=== PATIENT | female | born 1995 | race American Indian/Alaskan Native ===

== ENCOUNTER 2021-06-21 23:59 | Inpatient (IN) | payer SELFPAY ==
[2021-06-22] MEDS ORDERED: ACETAMINOPHEN 325 MG TAB PO ONE (01:07)
--- NOTE | 2021-06-22 01:08 | Emergency Department Report ---
<JOHANNY SETH - Last Filed: 06/22/21 06:13> ED General Adult HPI - General Chief complaint: Dyspnea/Respdistress Stated complaint: Chest wall pain. Shortness of breath Time Seen by Provider: 06/22/21 01:05 - Related Data Home Medications Medication Instructions Recorded Confirmed Last Taken No Known Home Medications [No 06/23/21 06/23/21 Unknown Reported Home Medications] Allergies Allergy/AdvReac Type Severity Reaction Status Date / Time No Known Allergies Allergy Verified 06/23/21 10:08 ED Past Medical Hx - Medications Home Medications: Home Medications Medication Instructions Recorded Confirmed Last Taken Type No Known Home Medications [No 06/23/21 06/23/21 Unknown History Reported Home Medications] ED Medical Decision Making - Lab Data Result diagrams: 06/22/21 01:15 06/22/21 01:15 - Medical Decision Making Patient signed out to me by Dr. Marie. Patient was admitted to hospitalist Dr. Quigley for persistent tachycardia and shortness of breath despite relatively negative ED work evaluation. Patient will be admitted for further work-up beyond ED evaluation ED Disposition Clinical Impression: Acute chest pain, Acute dyspnea, Tachycardia, BMI 40.0-44.9, adult Disposition: 09 ADMITTED INPATIENT Is pt being admited?: Yes Condition: Stable Time of Disposition: 06:15 <FOREST MARIE - Last Filed: 06/24/21 17:58> ED General Adult HPI - General PUI?: No Source: patient, EMS (Verbal report received from emergency medical services. EMS documentation not available at time of chart dictation ), RN notes reviewed Mode of arrival: Stretcher Limitations: Physical Limitation - History of Present Illness Initial comments: The patient was evaluated in the emergency department for symptoms described in the history of present illness. He/she was evaluated in the context of the global COVID-19 pandemic, which necessitated consideration that the patient might be at risk for infection with the virus that causes COVID-19. Institutional protocols and algorithms that pertain to the evaluation of patien ts at risk for COVID-19 are in a state of rapid change based on information released by regulatory bodies including the CDC and federal and state organizations. These policies and algorithms were followed during the patient's care in the emergency department. Please note that these policies, procedures and recommendations changed on a rapid basis. The patient is a morbidly obese 25-year-old female who reports that she is not , and reports that she has not delivered her given in the past 6 weeks. She presents to the ER with a complaint of sudden onset shortness of breath and chest pain. The patient is not vomiting. The patient denies diaphoresis. The patient reports that she has her Covid vaccinations. Patient denies travel, surgery, immobilization, oral contraceptive use, DVT/PE risk factors. Reports that her sister had a history of sickle trait or sickle cell disease, and as per EMS, " of cardiac complications." Patient is not quite sure what specifically happened. EMS reports that patient is tachycardic in the field. Patient also feels little bit dizzy somewhat lightheaded. She does endorse symptoms of obstructive sleep apnea, including snoring, sen sation of incomplete sleep interest, vivid dreams, and generalized fatigue. -: Sudden Location: chest Radiation: non-radiation Quality: aching Consistency: constant Improves with: rest Worsens with: movement ED Review of Systems ROS: Stated complaint: NATALIIA/TACHYCARDIA Other details as noted in HPI Constitutional: malaise, weakness. denies: fever Eyes: denies: eye discharge Respiratory: shortness of breath Cardiovascular: chest pain, palpitations Gastrointestinal: denies: abdominal pain Neurological: weakness Hematological/Lymphatic: denies: easy bleeding ED Physical Exam - General Limitations: Physical Limitation General appearance: alert, anxious, obese - Head Head exam: Present: atraumatic, normocephalic - Eye Eye exam: Present: normal appearance, EOMI. Absent: nystagmus - ENT ENT exam: Present: normal exam, normal orophraynx, mucous membranes moist, normal external ear exam - Neck Neck exam: Present: normal inspection, full ROM. Absent: tenderness, meningismus - Respiratory Respiratory exam: Present: chest wall tenderness, decreased breath sounds. Absent: respiratory distress, wheezes, rales, rhonchi, stridor - Cardiovascular Cardiovascular Exam: Present: normal rhythm, tachycardia, normal heart sounds. Absent: bradycardia, irregular rhythm, systolic murmur, diastolic murmur, rubs, gallop - GI/Abdominal GI/Abdominal exam: Present: soft. Absent: distended, tenderness, guarding, rebound, rigid, pulsatile mass - Extremities Exam Extremities exam: Present: normal inspection, full ROM, pedal edema (1-2+ edema in the bilateral lower extremities), other (2+ pulses noted in the bilateral upper and lower extremities. There is no palpable cord. negative Homans sign. Muscular compartments are soft. The pelvis is stable.). Absent: calf tenderness - Back Exam Back exam: Present: normal inspection, full ROM. Absent: tenderness, CVA ten derness (R), CVA tenderness (L), paraspinal tenderness, vertebral tenderness - Neurological Exam Neurological exam: Present: alert, other (No facial droop. Tongue midline. Extraocular movements intact bilaterally. Facial sensation intact to light touch in V1, V2, V3 distribution bilaterally. 5 and a 5 strength in 4 extremities. Sensation intact to light touch in 4 extremities.). Absent: motor sensory deficit - Psychiatric Psychiatric exam: Present: anxious - Skin Skin exam: Present: warm, dry, intact, normal color. Absent: rash ED Course Vital Signs 06/22/21 06/22/21 06/22/21 01:20 02:45 03:12 Temperature 98.8 F Pulse Rate 149 H 128 H Respiratory 18 22 20 Rate Blood Pressure Blood Pressure 158/88 117/82 [Left] O2 Sat by Pulse 98 98 Oximetry 06/22/21 06/22/21 06/22/21 03:13 03:14 04:14 Temperature Pulse Rate 130 H Respiratory 22 Rate Blood Pressure Blood Pressure [Left] O2 Sat by Pulse 98 Oximetry 06/22/21 06/22/21 06/22/21 05:01 06:01 07:01 Temperature Pulse Rate 127 H 126 H 118 H Respiratory 32 H 21 23 Rate Blood Pressure 118/52 116/48 119/57 Blood Pressure [Left] O2 Sat by Pulse 90 97 100 Oximetry 06/22/21 06/22/21 06/22/21 08:01 09:01 10:00 Temperature Pulse Rate 124 H 114 H 101 H Respiratory 15 20 15 Rate Blood Pressure 132/70 127/67 121/60 Blood Pressure [Left] O2 Sat by Pulse 98 99 Oximetry 06/22/21 06/22/21 06/22/21 11:00 12:00 13:00 Temperature Pulse Rate 99 H 98 H 93 H Respiratory 22 19 21 Rate Blood Pressure 108/57 112/56 109/58 Blood Pressure [Left] O2 Sat by Pulse Oximetry 06/22/21 06/22/21 06/22/21 14:00 15:00 16:00 Temperature Pulse Rate 93 H 92 H 87 Respiratory 20 13 19 Rate Blood Pressure 122/74 105/61 114/65 Blood Pressure [Left] O2 Sat by Pulse 99 Oximetry 06/22/21 17:00 Temperature Pulse Rate 103 H Respiratory 14 Rate Blood Pressure 127/74 Blood Pressure [Left] O2 Sat by Pulse 100 Oximetry - Reevaluation(s) Reevaluation #1: 06/22/21 04:00 Differential diagnosis, including but not limited to: Pneumonia, COVID-19, obstructive sleep apnea, pulmonary hypertension, acute coronary syndrome, myocarditis, pericarditis, pulmonary embolism, congestive heart failure, pericardial effusion Assessment and plan: 25-year-old female who is morbidly obese, with a BMI of 43, and markedly tachycardic, presenting with chest pain, shortness of breath, lightheadedness. Laboratory studies unremarkable. Chest x-ray unremarkable. EKG remarkable for sinus tachycardia. Negative D-dimer reviewed and appreciated. However, given morbid obesity, tachycardia, lack of alternative explanation, at this point time, patient does not appear to be low pretest probability and cannot be risk stratified by D-dimer alone. Therefore, CT scan of the chest will be obtained. Her tachycardia is improving. Patient at low risk for major adverse cardiac event as per heart score. We will treat her pain, obtain repeat EKG and troponin. 06/22/21 04:07 06/22/21 05:33 EKG #2 is unchanged from prior. Troponin is negative x2. Patient is still markedly tachycardic. Patient has received Tylenol, morphine, midazolam. Also received ketorolac. She will be given a trial bolus of IV fluids. Patient is agreeable to admission and hospitalization if necessary. Care will be transferred to the oncoming ER provider, to reassess after completion of IV fluids. Patient still tachycardic, admit this patient to the medical service for persistent tachycardia of unclear etiology, and acute chest pain. ED Medical Decision Making - Lab Data Result diagrams: 06/22/21 01:15 06/22/21 01:15 Vital Signs 06/22/21 06/22/21 06/22/21 01:20 02:45 03:12 Temperature 98.8 F Pulse Rate 149 H 128 H Respiratory 18 22 20 Rate Blood Pressure 158/88 117/82 [Left] O2 Sat by Pulse 98 98 Oximetry 06/22/21 06/22/21 03:13 03:14 Temperature Pulse Rate 130 H Respiratory Rate Blood Pressure [Left] O2 Sat by Pulse 98 Oximetry Lab Results 06/22/21 06/22/21 06/22/21 Range/Units 01:15 01:15 01:15 WBC 9.0 (4.5-11.0) K/mm3 RBC 4.70 (3.65-5.03) M/mm3 Hgb 12.4 (10.1-14.3) gm/dl Hct 38.4 (30.3-42.9) % MCV 82 (79-97) fl MCH 26 L (28-32) pg MCHC 32 (30-34) % RDW 14.4 (13.2-15.2) % Plt Count 224 (140-440) K/mm3 Lymph % (Auto) 25.0 (13.4-35.0) % [place] % (Auto) 10.8 H (0.0-7.3) % Eos % (Auto) 0.5 (0.0-4.3) % Baso % (Auto) 0.4 (0.0-1.8) % Lymph # (Auto) 2.3 (1.2-5.4) K/mm3 [place] # (Auto) 1.0 H (0.0-0.8) K/mm3 Eos # (Auto) 0.0 (0.0-0.4) K/mm3 Baso # (Auto) 0.0 (0.0-0.1) K/mm3 Seg Neutrophils % 63.3 (40.0-70.0) % Seg Neutrophils # 5.7 (1.8-7.7) K/mm3 PT 12.4 (12.2-14.9) Sec. INR 0.83 L (0.87-1.13) APTT 29.3 (24.2-36.6) Sec. D-Dimer (0-234) ng/mlDDU Sodium 139 (137-145) mmol/L Potassium 4.2 (3.6-5.0) mmol/L Chloride 102.1 (98-107) mmol/L Carbon Dioxide 22 (22-30) mmol/L Anion Gap 19 mmol/L BUN 12 (7-17) mg/dL Creatinine 0.9 (0.6-1.2) mg/dL Estimated GFR > 60 ml/min BUN/Creatinine Ratio 13 % Glucose 190 H (65-100) mg/dL Calcium 10.4 H (8.4-10.2) mg/dL Magnesium 1.60 L (1.7-2.3) mg/dL Total Bilirubin < 0.20 (0.1-1.2) mg/dL AST 23 (5-40) units/L ALT 18 (7-56) units/L Alkaline Phosphatase 81 (35-129) units/L Total Creatine Kinase (30-135) units/L Troponin T (0.00-0.029) ng/mL NT-Pro-B Natriuret Pep (0-450) pg/mL Total Protein 7.4 (6.3-8.2) g/dL Albumin 3.9 (3.9-5) g/dL Albumin/Globulin Ratio 1.1 % TSH (0.270-4.200) mlU/mL Free T4 (0.76-1.46) ng/dL HCG, Quant (0-4) mIU/mL 06/22/21 06/22/21 06/22/21 Range/Units 01:15 01:15 01:15 WBC (4.5-11.0) K/mm3 RBC (3.65-5.03) M/mm3 Hgb (10.1-14.3) gm/dl Hct (30.3-42.9) % MCV (79-97) fl MCH (28-32) pg MCHC (30-34) % RDW (13.2-15.2) % Plt Count (140-440) K/mm3 Lymph % (Auto) (13.4-35.0) % [place] % (Auto) (0.0-7.3) % Eos % (Auto) (0.0-4.3) % Baso % (Auto) (0.0-1.8) % Lymph # (Auto) (1.2-5.4) K/mm3 [place] # (Auto) (0.0-0.8) K/mm3 Eos # (Auto) (0.0-0.4) K/mm3 Baso # (Auto) (0.0-0.1) K/mm3 Seg Neutrophils % (40.0-70.0) % Seg Neutrophils # (1.8-7.7) K/mm3 PT (12.2-14.9) Sec. INR (0.87-1.13) APTT (24.2-36.6) Sec. D-Dimer (0-234) ng/mlDDU Sodium (137-145) mmol/L Potassium (3.6-5.0) mmol/L Chloride (98-107) mmol/L Carbon Dioxide (22-30) mmol/L Anion Gap mmol/L BUN (7-17) mg/dL Creatinine (0.6-1.2) mg/dL Estimated GFR ml/min BUN/Creatinine Ratio % Glucose (65-100) mg/dL Calcium (8.4-10.2) mg/dL Magnesium (1.7-2.3) mg/dL Total Bilirubin (0.1-1.2) mg/dL AST (5-40) units/L ALT (7-56) units/L Alkaline Phosphatase (35-129) units/L Total Creatine Kinase 372 H (30-135) units/L Troponin T < 0.010 (0.00-0.029) ng/mL NT-Pro-B Natriuret Pep < 5 (0-450) pg/mL Total Protein (6.3-8.2) g/dL Albumin (3.9-5) g/dL Albumin/Globulin Ratio % TSH (0.270-4.200) mlU/mL Free T4 1.07 (0.76-1.46) ng/dL HCG, Quant (0-4) mIU/mL 06/22/21 06/22/21 06/22/21 Range/Units 01:15 01:15 01:15 WBC (4.5-11.0) K/mm3 RBC (3.65-5.03) M/mm3 Hgb (10.1-14.3) gm/dl Hct (30.3-42.9) % MCV (79-97) fl MCH (28-32) pg MCHC (30-34) % RDW (13.2-15.2) % Plt Count (140-440) K/mm3 Lymph % (Auto) (13.4-35.0) % [place] % (Auto) (0.0-7.3) % Eos % (Auto) (0.0-4.3) % Baso % (Auto) (0.0-1.8) % Lymph # (Auto) (1.2-5.4) K/mm3 [place] # (Auto) (0.0-0.8) K/mm3 Eos # (Auto) (0.0-0.4) K/mm3 Baso # (Auto) (0.0-0.1) K/mm3 Seg Neutrophils % (40.0-70.0) % Seg Neutrophils # (1.8-7.7) K/mm3 PT (12.2-14.9) Sec. INR (0.87-1.13) APTT (24.2-36.6) Sec. D-Dimer 172.9 (0-234) ng/mlDDU Sodium (137-145) mmol/L Potassium (3.6-5.0) mmol/L Chloride (98-107) mmol/L Carbon Dioxide (22-30) mmol/L Anion Gap mmol/L BUN (7-17) mg/dL Creatinine (0.6-1.2) mg/dL Estimated GFR ml/min BUN/Creatinine Ratio % Glucose (65-100) mg/dL Calcium (8.4-10.2) mg/dL Magnesium (1.7-2.3) mg/dL Total Bilirubin (0.1-1.2) mg/dL AST (5-40) units/L ALT (7-56) units/L Alkaline Phosphatase (35-129) units/L Total Creatine Kinase (30-135) units/L Troponin T (0.00-0.029) ng/mL NT-Pro-B Natriuret Pep (0-450) pg/mL Total Protein (6.3-8.2) g/dL Albumin (3.9-5) g/dL Albumin/Globulin Ratio % TSH 1.320 (0.270-4.200) mlU/mL Free T4 (0.76-1.46) ng/dL HCG, Quant < 2 (0-4) mIU/mL - EKG Data -: EKG Interpreted by Sd EKG shows normal: sinus rhythm Rate: tachycardia - EKG Data 06/22/21 03:56 The EKG is interpreted at 01: 37 Sinus tachycardia, rate 140 bpm. Normal axis, normal intervals, normal P wave axis, high left ventricular voltage. Minimal motion artifact. Abnormal EKG. Not a STEMI. - Radiology Data Radiology results: pending, report reviewed, image reviewed CHEST 2 VIEWS INDICATION / CLINICAL INFORMATION: Dyspnea. COMPARISON: None available. FINDINGS: SUPPORT DEVICES: None. HEART / MEDIASTINUM: No significant abnormality. LUNGS / PLEURA: No significant pulmonary or pleural abnormality. No pneumothorax. ADDITIONAL FINDINGS: No significant additional findings. IMPRESSION: 1. No acute findings. Signer Name: Maude Campoverde MD Signed: 06/22/2021 1:34 AM Workstation Name: [facility] CTA CHEST WITH IV CONTRAST INDICATION / CLINICAL INFORMATION: acute cp, tacycardia. TECHNIQUE: Axial CT images were obtained through the chest after injection of 100 cc Omnipaque 350 IV contrast. 3 plane MIP and/or 3D reconstructions were produced. All CT scans at this location are performed using CT dose reduction for ALARA by means of automated exposure control. COMPARISON: Chest radiograph performed earlier today. FINDINGS: PULMONARY ARTERIES: No pulmonary emboli. THORACIC AORTA: No significant abnormality. HEART: No significant abnormality. CORONARY ARTERIES: No significant calcification. PLEURA: No pleural effusion. No pneumothorax. LYMPH NODES: No s ignificant adenopathy. LUNGS: No acute air space or interstitial disease. ADDITIONAL FINDINGS: None. UPPER ABDOMEN: No acute findings. SKELETAL STRUCTURES: No significant osseous abnormality. IMPRESSION: 1. No CT evidence for pulmonary embolism. 2. No acute pulmonary or pleural disease. Signer Name: Maude Campoverde MD Signed: 06/22/2021 3:14 AM Workstation Name: [facility] Critical care attestation.: If time is entered above; I have spent that time in minutes in the direct care of this critically ill patient, excluding procedure time. Heart Score - HEART Score History: Slightly suspicious EKG: Non-specific Age: < 45 Risk factors: 1-2 risk factors Troponin: < normal limit HEART Score: 2 - EKG Read Time Time EKG Completed: :37 EKG Read Time: 01:37 - Critical Actions Critical Actions: 0-3 pts:0.9-1.7%risk of adverse cardiac event.Candidate for discharge
[2021-06-22 01:34] LABS: Basophils % (Auto) 0.4 % (0.0-1.8); Eosinophils % (Auto) 0.5 % (0.0-4.3); Hematocrit 38.4 % (30.3-42.9); Hemoglobin 12.4 gm/dl (10.1-14.3); Lymphocytes # (Auto) 2.3 K/mm3 (1.2-5.4); Mean Corpuscular HGB Conc 32 % (30-34); Mean Corpuscular Volume 82 fl (79-97); Monocytes % (Auto) 10.8 % (0.0-7.3); Platelet Count 224 K/mm3 (140-440); Red Cell Distribution Width 14.4 % (13.2-15.2)
[2021-06-22 01:48] LABS: INR 0.83 (0.87-1.13); Partial Thromboplastin Time 29.3 Sec. (24.2-36.6)
[2021-06-22 01:57] LABS: Alanine Aminotransferase 18 units/L (7-56); Albumin 3.9 g/dL (3.9-5); BUN/Creatinine Ratio 13; Blood Urea Nitrogen 12 mg/dL (7-17); Calcium 10.4 mg/dL (8.4-10.2); Hemolysis Index 60
[2021-06-22] MEDS ORDERED: MORPHINE 4 MG/1 ML INJ IV ONE (02:21)
[2021-06-22] MEDS ORDERED: MAGNESIUM OXIDE 400 MG TAB PO STA (02:22)
[2021-06-22] MEDS ORDERED: POTASSIUM CHLORIDE ER 20 MEQ TAB PO ONE (02:22)
--- NOTE | 2021-06-22 02:38 | XRay Report ---
CHEST 2 VIEWS INDICATION / CLINICAL INFORMATION: Dyspnea. COMPARISON: None available. FINDINGS: SUPPORT DEVICES: None. HEART / MEDIASTINUM: No significant abnormality. LUNGS / PLEURA: No significant pulmonary or pleural abnormality. No pneumothorax. ADDITIONAL FINDINGS: No significant additional findings. IMPRESSION: 1. No acute findings. Signer Name: Maude Campoverde MD Signed: 06/22/2021 2:34 AM Workstation Name: [id number]
[2021-06-22] MEDS ORDERED: KETOROLAC 30 MG/1 ML INJ IV ONE (03:30)
--- NOTE | 2021-06-22 04:18 | Cat Scan Report ---
CTA CHEST WITH IV CONTRAST INDICATION / CLINICAL INFORMATION: acute cp, tacycardia. TECHNIQUE: Axial CT images were obtained through the chest after injection of 100 cc Omnipaque 350 IV contrast. 3 plane MIP and/or 3D reconstructions were produced. All CT scans at this location are performed usin g CT dose reduction for CEE by means of automated exposure control. COMPARISON: Chest radiograph performed earlier today. FINDINGS: PULMONARY ARTERIES: No pulmonary emboli. THORACIC AORTA: No significant abnormality. HEART: No significant abnormality. CORONARY ARTERIES: No significant calcification. PLEURA: No pleural effusion. No pneumothorax. LYMPH NODES: No significant adenopathy. LUNGS: No acute air space or interstitial disease. ADDITIONAL FINDINGS: None. UPPER ABDOMEN: No acute findings. SKELETAL STRUCTURES: No significant osseous abnormality. IMPRESSION: 1. No CT evidence for pulmonary embolism. 2. No acute pulmonary or pleural disease. Signer Name: Maude Campoverde MD Signed: 06/22/2021 4:14 AM Workstation Name: [id number]
[2021-06-22] MEDS ORDERED: MIDAZOLAM 2 MG/2 ML INJ IV ONE (04:25)
[2021-06-22] MEDS ORDERED: SODIUM CHLORIDE 0.9% 1000 ML 1,000 ML IV ONE (05:10)
--- NOTE | 2021-06-22 07:21 | History and Physical Report ---
History of Present Illness Date of examination: 06/22/21 Date of admission: 06/22/21 Chief complaint: chest pain and tachycardia History of present illness: Patient is a 25-year-old female with no significant past medical history except for morbid obesity who presents to the ED with complaint of sudden onset of shortness of breath and chest pain chest patient describes as reproducible substernal 5/10 in intensity started on the night before presentation constant nonradiating with no exertional pathology. She denies any diaphoresis orthopnea PND. She has a BMI of 43.4 states that she has no family history of cardiac disease except for a sister who had sickle cell and from cardiac complications. In the ER she was noted to have a heart rate in the 140s noted a sinus tachycardia on EKG initial work-up including a CTA of the chest was negative for pulmonary embolism. She denies any fever denies any alcohol or illicit drug use. Past History Past Medical History: other (obese) Past Surgical History: No surgical history Social history: no significant social history Family history: no significant family history Medications and Allergies Allergies Allergy/AdvReac Type Severity Reaction Status Date / Time No Known Allergies Allergy Verified 06/22/21 01:20 Review of Systems All systems: negative Constitutional: no weight loss, no weight gain, no sweats, no night sweats, no weakness, no malaise, no lethargy Cardiovascular: chest pain, shortness of breath, dyspnea on exertion Respiratory: shortness of breath, dyspnea on exertion Gastrointestinal: no abdominal pain, no vomiting, no diarrhea, no constipation, no change in bowel habits Exam - Physical Exam Narrative exam: VITAL SIGNS: Reviewed. GENERAL: The patient appears normally developed, Vital signs as documented. Morbidly obese HEAD: No signs of head trauma. EYES: Pupils are equal. Extraocular motions intact. EARS: Hearing grossly intact. MOUTH: Oropharynx is normal. NECK: No adenopathy, no JVD. CHEST: Chest with clear breath sounds bilaterally. No wheezes, rales, or rhonchi. CARDIAC: Regular rate and rhythm. S1 and S2, without murmurs, gallops, or rubs. VASCULAR: No Edema. Peripheral pulses normal and equal in all extremities. ABDOMEN: Soft, non tender and non distended. No rebound or guarding, and no masses palpated. Bowel Sounds normal. MUSCULOSKELETAL: Tender at the substernal area good range of motion of all major joints. Extremities without clubbing, cyanosis or edema. NEUROLOGIC EXAM: Alert and oriented x 3 No focal sensory or strength deficits. Speech normal. Follows commands. PSYCHIATRIC: Mood normal. SKIN: detail exam as documented in skin assessment - Constitutional Vitals: Temp Pulse Resp BP Pulse Ox 98.8 F 126 H 21 116/48 97 06/22/21 01:20 06/22/21 06:01 06/22/21 06:01 06/22/21 06:01 06/22/21 06:01 HEART Score - HEART Score EKG: Non-specific Age: < 45 Risk factors: 1-2 risk factors Troponin: Troponin T < 0.010 ng/mL (0.00-0.029) 06/22/21 04:16 Troponin: < normal limit - Critical Actions Critical Actions: 0-3 pts:0.9-1.7%risk of adverse cardiac event.Candidate for discharge Results - Labs CBC & Chem 7: 06/22/21 01:15 06/22/21 01:15 Labs: Laboratory Last Values WBC 9.0 K/mm3 (4.5-11.0) 06/22/21 01:15 RBC 4.70 M/mm3 (3.65-5.03) 06/22/21 01:15 Hgb 12.4 gm/dl (10.1-14.3) 06/22/21 01:15 Hct 38.4 % (30.3-42.9) 06/22/21 01:15 MCV 82 fl (79-97) 06/22/21 01:15 MCH 26 pg (28-32) L 06/22/21 01:15 MCHC 32 % (30-34) 06/22/21 01:15 RDW 14.4 % (13.2-15.2) 06/22/21 01:15 Plt Count 224 K/mm3 (140-440) 06/22/21 01:15 Lymph % (Auto) 25.0 % (13.4-35.0) 06/22/21 01:15 [place] % (Auto) 10.8 % (0.0-7.3) H 06/22/21 01:15 Eos % (Auto) 0.5 % (0.0-4.3) 06/22/21 01:15 Baso % (Auto) 0.4 % (0.0-1.8) 06/22/21 01:15 Lymph # (Auto) 2.3 K/mm3 (1.2-5.4) 06/22/21 01:15 [place] # (Auto) 1.0 K/mm3 (0.0-0.8) H 06/22/21 01:15 Eos # (Auto) 0.0 K/mm3 (0.0-0.4) 06/22/21 01:15 Baso # (Auto) 0.0 K/mm3 (0.0-0.1) 06/22/21 01:15 Seg Neutrophils % 63.3 % (40.0-70.0) 06/22/21 01:15 Seg Neutrophils # 5.7 K/mm3 (1.8-7.7) 06/22/21 01:15 PT 12.4 Sec. (12.2-14.9) 06/22/21 01:15 INR 0.83 (0.87-1.13) L 06/22/21 01:15 APTT 29.3 Sec. (24.2-36.6) 06/22/21 01:15 D-Dimer 172.9 ng/mlDDU (0-234) 06/22/21 01:15 ABG pH 7.378 (7.320-7.450) 06/22/21 05:42 POC ABG pCO2 41.5 mmHg (32.0-48.0) 06/22/21 05:42 POC ABG pO2 84.9 mmHg (83-108) 06/22/21 05:42 POC ABG HCO3 23.9 06/22/21 05:42 ABG O2 Saturation 96.6 (0-100) 06/22/21 05:42 POC ABG Base Excess -1.2 06/22/21 05:42 ABG Hemoglobin 12.3 (12.0-17.5) 06/22/21 05:42 ABG Oxyhemoglobin 95.9 (94-98) 06/22/21 05:42 ABG Methemoglobin 0 (0.0-1.5) 06/22/21 05:42 Carboxyhemoglobin 0.7 (0.5-1.5) 06/22/21 05:42 FiO2 % 21.0 06/22/21 05:42 Sodium 139 mmol/L (137-145) 06/22/21 01:15 Potassium 4.2 mmol/L (3.6-5.0) 06/22/21 01:15 Chloride 102.1 mmol/L (98-107) 06/22/21 01:15 Carbon Dioxide 22 mmol/L (22-30) 06/22/21 01:15 Anion Gap 19 mmol/L 06/22/21 01:15 BUN 12 mg/dL (7-17) 06/22/21 01:15 Creatinine 0.9 mg/dL (0.6-1.2) 06/22/21 01:15 Estimated GFR > 60 ml/min 06/22/21 01:15 BUN/Creatinine Ratio 13 % 06/22/21 01:15 Glucose 190 mg/dL (65-100) H 06/22/21 01:15 Calcium 10.4 mg/dL (8.4-10.2) H 06/22/21 01:15 Magnesium 1.60 mg/dL (1.7-2.3) L 06/22/21 01:15 Total Bilirubin < 0.20 mg/dL (0.1-1.2) 06/22/21 01:15 AST 23 units/L (5-40) 06/22/21 01:15 ALT 18 units/L (7-56) 06/22/21 01:15 Alkaline Phosphatase 81 units/L (35-129) 06/22/21 01:15 Total Creatine Kinase 372 units/L (30-135) H 06/22/21 01:15 Troponin T < 0.010 ng/mL (0.00-0.029) 06/22/21 04:16 NT-Pro-B Natriuret Pep < 5 pg/mL (0-450) 06/22/21 01:15 Total Protein 7.4 g/dL (6.3-8.2) 06/22/21 01:15 Albumin 3.9 g/dL (3.9-5) 06/22/21 01:15 Albumin/Globulin Ratio 1.1 % 06/22/21 01:15 TSH 1.320 mlU/mL (0.270-4.200) 06/22/21 01:15 Free T4 1.07 ng/dL (0.76-1.46) 06/22/21 01:15 HCG, Quant < 2 mIU/mL (0-4) 06/22/21 01:15 Assessment and Plan Assessment and plan: Patient is a 25-year-old female with no significant past medical history except for morbid obesity who presents to the ED with complaint of sudden onset of shortness of breath and chest pain chest patient describes as reproducible substernal 5/10 in intensity started on the night before presentation constant nonradiating with no exertional pathology. She denies any diaphoresis orthopnea PND. She has a BMI of 43.4 states that she has no family history of cardiac disease except for a sister who had sickle cell and from cardiac complications. In the ER she was noted to have a heart rate in the 140s noted a sinus tachycardia on EKG initial work-up including a CTA of the chest was negative for pulmonary embolism. She denies any fever denies any alcohol or illicit drug use. Atypical chest Pain constochondritis Tachycardia Hypomagnesmia Morbid Obesity ? Pickwickian syndrome ?Anxiety PLAN Admit to Tele Obtain cardiology consult Echo to monitor cardiac muscle Replace Magnesium and check mag level in am pain control Oxygen therapy Morphine PRN Weightloss recommended DVT/GI prophy Advance Directives: Yes Plan of care discussed with patient/family: Yes
[2021-06-22] MEDS ORDERED: oxyCODONE /ACETAMINOPHEN 5-325MG TAB PO PRN (08:00)
[2021-06-22] MEDS ORDERED: ONDANSETRON 4 MG/2 ML INJ IV PRN (08:00)
[2021-06-22] MEDS ORDERED: NALOXONE 0.4 MG/1 ML INJ IV PRN (08:00)
[2021-06-22] MEDS ORDERED: ACETAMINOPHEN 325 MG TAB PO PRN (08:00)
[2021-06-22 10:24] LABS: Amphetamine Screen,Urine Negative; Cocaine Screen,Urine Negative; Methadone Screen,Urine Negative
[2021-06-22 11:15] LABS: Benzodiazepines Screen,Urine Positive; Cannabinoid Screen,Urine Positive; Opiate Screen,Urine Negative
--- NOTE | 2021-06-22 11:55 | Consultation ---
History of Present Illness Consult date: 06/22/21 Requesting physician: SEVERO ESTRADA Consult reason: tachycardia History of present illness: Patient 25-year-old morbidly obese female who denies any past medical history who presents to the ED with complaint of sudden onset shortness of breath and dizziness that started at 11 PM the night before admission. Patient reports lying in bed when all of a sudden she developed the shortness of breath and dizziness. Patient also reports some slight chest pressure associated with shortness of breath. ED work-up has shown the patient to be sinus tach with heart rate in is 140s however has trended down to the low 100s -110s. Lab work thus far has been unrevealing. At time of interview patient reports chest pressure has disappeared. Patient denies orthopnea, palpitations, nausea, vomiting, or diaphoresis. Patient is previously unknown to our practice. Cardiology is consulted for tachycardia. Past History Past Medical History: No medical history Past Surgical History: No surgical history Social history: no significant social history Family history: other (sickel cell) Medications and Allergies Allergies Allergy/AdvReac Type Severity Reaction Status Date / Time No Known Allergies Allergy Verified 06/22/21 01:20 Active Meds: Active Medications Acetaminophen (Acetaminophen 325 Mg Tab) 650 mg PO Q4H PRN PRN Reason: Pain MILD(1-3)/Fever >100.5/NAIR Heparin Sodium (Porcine) (Heparin 5,000 Unit/1 Ml Vial) 5,000 unit SUB-Q Q8HR JONNATHAN Naloxone HCl (Naloxone 0.4 Mg/1 Ml Inj) 0.1 mg IV Q2MIN PRN PRN Reason: Res Rate </= 8 or 02 SAT < 92% Ondansetron HCl (Ondansetron 4 Mg/2 Ml Inj) 4 mg IV Q8H PRN PRN Reason: Nausea And Vomiting Oxycodone/Acetaminophen (Oxycodone /Acetaminophen 5-325mg Tab) 1 tab PO Q6H PRN PRN Reason: Pain, Moderate (4-6) Sodium Chloride (Sodium Chloride 0.9% 10 Ml Flush Syringe) 10 ml IV BID [facility] Last Admin: 06/22/21 10:49 Dose: 10 ml Sodium Chloride (Sodium Chloride 0.9% 10 Ml Flush Syringe) 10 ml IV PRN PRN PRN Reason: LINE FLUSH Review of Systems Constitutional: no weight loss, no weight gain, no fever, no chills Ears, nose, mouth and throat: no nasal discharge, no sinus pressure, no sinus pain Cardiovascular: chest pain, lightheadedness, shortness of breath, no orthopnea, no palpitations Respiratory: shortness of breath, dyspnea on exertion Gastrointestinal: no abdominal pain, no nausea, no vomiting, no diarrhea Musculoskeletal: no neck stiffness, no neck pain, no shooting arm pain Integumentary: no rash, no pruritis, no redness Neurological: no head injury, no transient paralysis Psychiatric: no anxiety, no memory loss Endocrine: no cold intolerance, no heat intolerance Hematologic/Lymphatic: no easy bruising, no easy bleeding Physical Examination Vital Signs Temp Pulse Resp BP Pulse Ox 98.8 F 149 H 18 158/88 98 06/22/21 01:20 06/22/21 01:20 06/22/21 01:20 06/22/21 01:20 06/22/21 01:20 General appearance: no acute distress HEENT: Positive: PERRL Neck: Positive: trachea midline Cardiac: Positive: Regular Rhythm, Tachycardia Lungs: Positive: Normal Breath Sounds Neuro: Positive: Grossly Intact Abdomen: Positive: Soft, Active Bowel Sounds Skin: Negative: Rash, Suspicious Lesions, Ulceration Extremities: Present: upper extr. pulses. Absent: edema Results 06/22/21 01:15 06/22/21 01:15 Cardiac Enzymes 06/22/21 Range/Units 01:15 AST 23 (5-40) units/L Coagulation 06/22/21 Range/Units 01:15 PT 12.4 (12.2-14.9) Sec. INR 0.83 L (0.87-1.13) APTT 29.3 (24.2-36.6) Sec. CBC 06/22/21 Range/Units 01:15 WBC 9.0 (4.5-11.0) K/mm3 RBC 4.70 (3.65-5.03) M/mm3 Hgb 12.4 (10.1-14.3) gm/dl Hct 38.4 (30.3-42.9) % Plt Count 224 (140-440) K/mm3 Lymph # (Auto) 2.3 (1.2-5.4) K/mm3 [place] # (Auto) 1.0 H (0.0-0.8) K/mm3 Eos # (Auto) 0.0 (0.0-0.4) K/mm3 Baso # (Auto) 0.0 (0.0-0.1) K/mm3 Comprehensive Metabolic Panel 06/22/21 Range/Units 01:15 Sodium 139 (137-145) mmol/L Potassium 4.2 (3.6-5.0) mmol/L Chloride 102.1 (98-107) mmol/L Carbon Dioxide 22 (22-30) mmol/L BUN 12 (7-17) mg/dL Creatinine 0.9 (0.6-1.2) mg/dL Glucose 190 H (65-100) mg/dL Calcium 10.4 H (8.4-10.2) mg/dL AST 23 (5-40) units/L ALT 18 (7-56) units/L Alkaline Phosphatase 81 (35-129) units/L Total Protein 7.4 (6.3-8.2) g/dL Albumin 3.9 (3.9-5) g/dL - Imaging and Cardiology Echo: pending EKG interpretations - Telemetry EKG Rhythm: Sinus Tachycardia - EKG Sinus rhythms and dysrhythmias: sinus tachycardia Assessment and Plan Patient 25-year-old morbidly obese female who denies any past medical history who presents to the ED with complaint of sudden onset shortness of breath and dizziness that started at 11 PM the night before admission Tachycardia Obesity Plan: EKG shows sinus tach 132 with no acute ischemic changes. Trops negative x2. Patient currently denying chest pain Currently sinus 100s-110s on monitor Currently unclear as to why patient is tachycardic Echo pending Patient seen in conjunction with Dr. Gilman who agrees with this plan of care - Patient Problems (1) Acute dyspnea Current Visit: Yes Status: Acute (2) BMI 40.0-44.9, adult Current Visit: Yes Status: Acute (3) Tachycardia Current Visit: Yes Status: Acute
[2021-06-22] MEDS: HEPARIN 5,000 UNIT/1 ML VIAL SUB-Q SCH ×2 (17:47→22:04)
[2021-06-23] MEDS: HEPARIN 5,000 UNIT/1 ML VIAL SUB-Q SCH (06:00)
[2021-06-23 09:04] VITALS: BP 145/92
--- NOTE | 2021-06-23 12:09 | Discharge Summary ---
Providers - Providers Date of Admission: 06/22/21 13:03 Attending physician: LEANDRO LESLIE MD 06/22/21 07:19 Consult to Physician [CONS] Routine Comment: Consulting Provider: KAYY CAGLE Physician Instructions: Reason For Exam: chest pain, tachycardia Primary care physician: TIMOTEO AVILA MD Hospitalization Condition: Stable Exam - Constitutional Vitals: Temp Pulse Resp BP Pulse Ox 99.0 F 87 18 145/92 96 06/23/21 07:41 06/23/21 07:41 06/23/21 07:41 06/23/21 07:41 06/23/21 07:41 Plan Care Plan Goals: All fellow causes of chest pain were ruled out. You did not have a heart attack or blood clot in your lung. We feel your chest pain and high heart rate was due to anxiety. If you experience chest pain similar or worse, please return to the ED. Follow up with: TIMOTEO AVILA MD [Primary Care Provider] - 7 Days
--- NOTE | 2021-06-23 12:14 | Progress Note ---
Assessment and Plan Patient 25-year-old morbidly obese female who denies any past medical history who presents to the ED with complaint of sudden onset shortness of breath and dizziness that started at 11 PM the night before admission Tachycardia Obesity Echo 06/22/2021-EF 50 to 55%. Right ventricle is not well visualized. Right ventricle systolic function is normal. Right atrium not well visualized left atrium is normal in size. Aortic valve not well visualized. Trace tricuspid regurgitation Plan: EKG shows sinus tach 132 with no acute ischemic changes. Trops negative x2. Patient currently denying chest pain Currently sinus 100s-110s on monitor Echo results noted above Upon speaking with patient patient reports that she has been feeling stressed about family member recent and when thinking about that is when she developed her symptoms. Tachycardia likely result of stress/anxiety. Patient denied any desire to speak with mental health counselor Cardiac status stable for discharge Patient seen in conjunction with Dr. Gilman who agrees with this plan of care - Patient Problems (1) Acute dyspnea Current Visit: Yes Status: Acute (2) BMI 40.0-44.9, adult Current Visit: Yes Status: Acute (3) Tachycardia Current Visit: Yes Status: Acute Subjective Date of service: 06/23/21 Principal diagnosis: tachycardia Interval history: Patient walking around room. Patient reports feeling much better today and denies any symptoms Sinus 90s to low 100s on monitor with no event Objective Vital Signs Temp Pulse Resp BP BP Pulse Ox 06/23/21 07:41 99.0 F 87 18 145/92 96 06/23/21 04:06 97.7 F 85 20 139/85 94 06/23/21 02:54 100 06/23/21 00:24 98.1 F 89 16 116/69 96 06/22/21 20:24 98.2 F 77 18 124/73 91 06/22/21 19:30 77 06/22/21 17:00 103 H 14 127/74 100 06/22/21 16:00 87 19 114/65 99 06/22/21 15:00 92 H 13 105/61 06/22/21 14:00 93 H 20 122/74 06/22/21 13:00 93 H 21 109/58 - Physical Examination General: No Apparent Distress HEENT: Positive: PERRL Neck: Positive: trachea midline Cardiac: Positive: Reg Rate and Rhythm Lungs: Positive: Normal Breath Sounds Neuro: Positive: Grossly Intact Abdomen: Positive: Soft, Active Bowel Sounds Skin: Negative: Rash, Suspicious Lesions, Ulceration Extremities: Present: upper extr. pulses. Absent: edema - Imaging and Cardiology Echo: report reviewed - Telemetry EKG Rhythm: Sinus Rhythm - EKG Sinus rhythms and dysrhythmias: sinus tachycardia
--- NOTE | 2021-06-24 10:06 | Electrocardiograph Report ---
[facility] Test Date: 2021-06-22 Test Time: 01:37:43 Pat Name: NADIA DOMINGO Department: Room: A481 Gender: F Registered Pharmacy Technician: Anupama : 1995 Requested By: FOREST ALVES Order Number: [id number] Reading MD: Severo Faust Measurements Intervals [place] Rate: 140 P: 64 MN: 145 QRS: 31 QRSD: 75 T: 6 QT: 277 QTc: 423 Interpretive Statements Sinus tachycardia Possible old anteroseptal infarct No previous ECG available for comparison Electronically Signed On 06-24-2021 10:06:20 EST by Severo Faust
--- NOTE | 2021-06-24 10:07 | Electrocardiograph Report ---
[facility] Test Date: 2021-06-22 Test Time: 04:09:27 Pat Name: NADIA DOMINGO Department: Room: A481 Gender: F Relief Captain: LUIS : 1995 Requested By: FOREST ALVES Order Number: [id number] Reading MD: Severo Faust Measurements Intervals [place] Rate: 132 P: 61 HI: 151 QRS: 19 QRSD: 78 T: -8 QT: 271 QTc: 401 Interpretive Statements Sinus tachycardia Possible old anteroseptal infarct Compared to ECG 06/22/2021 01:37:43 No significant changes Electronically Signed On 06-24-2021 10:07:20 EST by Severo Faust
== END 2021-06-23 15:55 | disposition home or self-care (01) | DRG 206 ==
LOC: ED 23:59 → 4A 06-22 07:19 → OBSVTOIN 06-22 13:03 → 4A 06-22 15:27
PROVIDERS: ADMIT Internal Medicine; ATTEND Student in an Organized Health Care Education/Training Program
DX: M94.0 Chondrocostal junction syndrome [Tietze] (principal); Z68.41 Body mass index [BMI] 40.0-44.9, adult; R00.0 Tachycardia, unspecified; E83.42 Hypomagnesemia; E66.01 Morbid (severe) obesity due to excess calories; F41.9 Anxiety disorder, unspecified
CPT/HCPCS: 36415; 71046; 71275; 80053; 80307; 82550; 82805; 83735; 83880; 84439; 84443; 84484; 84702; 85025; 85379; 85610; 85730; 93005; 93010; 93306; G0378; Q0162; C8929; J1644; J1885; J2250; J2270; J7030; Q9967